=== PATIENT | female | born 1990 | race Caucasian/White ===

== ENCOUNTER → 2017-11-03 | Outpatient (CLI) | payer MEDICAID ==
[~2017-11-03] MED LIST: ADVA115A INH; ALBU6.7H INH; FLUO-1 PO; LEVO25TA4 PO; LISI-519 PO
--- NOTE | 2017-11-04 13:53 | EKG ---
Date Performed: 11/03/2017 Time Performed: 10:23:20 PTAGE: 27 years EKG: Sinus rhythm . Normal ECG NO PREVIOUS TRACING DOCTOR: Manuel Mclaughlin Interpretating Date/Time 11/04/2017 13:51:40
== END ==
LOC: HCAV 10:09
PROVIDERS: ATTEND Psychiatry & Neurology Child & Adolescent Psychiatry
DX: F31.31 Bipolar disorder, current episode depressed, mild (principal)
CPT/HCPCS: 93005

== ENCOUNTER 2017-11-25 09:57 | Emergency (ER) | payer MEDICAID ==
[~2017-11-25] VITALS: Ht 165.1 cm; Wt 105.0 kg
[2017-11-25 10:00] VITALS: BP 134/73; PULSE 91; RESP 15; TEMP 98.2; O2SAT 99
[2017-11-25] MEDS ORDERED: traMADol HCL 50 MG TAB PO ONE (10:15)
--- NOTE | 2017-11-25 10:45 | RADRPT ---
EXAM DATE/TIME: 11/25/2017 10:22 [facility] COMPARISON: No previous studies available for comparison. INDICATIONS : Patient complain of swelling, pain, and a rash to left ankle. Patient states the pain feels like gout . MEDICAL HISTORY : Gout. SURGICAL HISTORY : None. ENCOUNTER: Initial ACUITY: 4 - 6 days PAIN SCORE: 7/10 LOCATION: Left Ankle FINDINGS: AP, lateral and oblique views of the left ankle were obtained and demonstrate no evidence of fracture or underlying bony abnormality. Ankle mortise is intact. There is diffuse soft tissue prominence wit h no abnormal calcifications. There is no destructive change or periosteal new bone formation. CONCLUSION: Nonspecific soft tissue swelling. Mickey Ivan MD on November 25, 2017 at 10:42 Board Certified Radiologist. This report was verified electronically.
[2017-11-25 11:08] LABS: BASOPHIL % 0.3 % (0.0-2.0); EOSINOPHIL # 0.7 TH/MM3 (0-0.4); EOSINOPHIL % 6.4 % (0.0-4.0); HEMATOCRIT 40.4 % (35.0-46.0); HEMOGLOBIN 13.3 GM/DL (11.6-15.3); LYMPH % 28.3 % (9.0-44.0); LYMPHOCYTE # 3.3 TH/MM3 (1.0-4.8); MEAN CELL VOLUME 84.4 FL (80.0-100.0); MEAN CORPUSCULAR HEMOGLOBIN 27.8 PG (27.0-34.0); MEAN CORPUSCULAR HGB CONC 32.9 % (32.0-36.0); MEAN PLATELET VOLUME 9.1 FL (7.0-11.0); MONO % 4.7 % (0.0-8.0); MONOCYTE # 0.5 TH/MM3 (0-0.9); NEUT % 60.3 % (16.0-70.0); PLATELET COUNT 279 TH/MM3 (150-450); RED BLOOD COUNT 4.78 MIL/MM3 (4.00-5.30); WHITE BLOOD COUNT 11.6 TH/MM3 (4.0-11.0)
[2017-11-25 11:33] LABS: ALBUMIN 3.8 GM/DL (3.4-5.0); AST (GOT) 16 U/L (15-37); BICARBONATE 23.9 MEQ/L (21.0-32.0); BLOOD UREA NITROGEN 17 MG/DL (7-18); CALCIUM 9.2 MG/DL (8.5-10.1); CHLORIDE 111 MEQ/L (98-107); CREATININE 1.31 MG/DL (0.50-1.00); GLOMERULAR FILTRATION RATE 49 ML/MIN (>89); GLUCOSE,RANDOM 85 MG/DL (74-106); SODIUM (NA) 141 MEQ/L (136-145)
[2017-11-25 11:34] LABS: ALT (GPT) 22 U/L (10-53)
[2017-11-25 11:36] LABS: ALKALINE PHOSPHATASE 122 U/L (45-117); TOTAL BILIRUBIN ADULT 0.2 MG/DL (0.2-1.0); TOTAL PROTEIN 7.2 GM/DL (6.4-8.2)
--- NOTE | 2017-11-25 11:37 | PD ---
HPI Chief Complaint: Pain: Acute or Chronic Time Seen by Provider: 10:03 Travel History International Travel<30 days: No Contact w/Intl Traveler<30days: No Traveled to known affect area: No History of Present Illness HPI Patient is a 27 year old female who comes in complaining of left foot pain. She says it has been going on for the past 3-4 days. She has not taken anything for the pain. Walking on her foot makes it worse. She has noticed a rash to the area. She denies any wounds to the area or breaks in her skin. She says it is burning and itching. She says she had something similar a while ago, but it just went away on its own. She denies fever or chills. She denies any injury. Severity is mild to moderate. PFSH Past Medical History Arthritis: Yes Depression: Yes High Cholesterol: Yes Diminished Hearing: No Gout: Yes Hypertension: Yes Immunizations Current: No Thyroid Disease: Yes ?: Not LMP: 11/2017 : 0 Tubal Ligation: Yes Past Surgical History Gynecologic Surgery: Yes Social History Alcohol Use: No Tobacco Use: Yes Substance Use: Yes (CANNABIS) Allergies-Medications (Allergen,Severity, Reaction): Coded Allergies: No Known Allergies (Verified Allergy, Unknown, 11/25/17) Reported Meds & Prescriptions Reported Meds & Active Scripts Active Advair Hfa 12 GM Inh (Fluticasone-Salmeterol 12 GM Inh) 115-21 Mcg/Act Aer 2 Puff INH BID Proventil Hfa 6.7 GM Inh (Albuterol Sulfate) 90 Mcg/Act Aer 2 Puff INH Q4-6H PRN Prozac (Fluoxetine HCl) 10 Mg Cap 10 Mg PO DAILY Start with 10mg daily. If that is not effective after 1 week, please increase your dose to 20mg daily. Lisinopril 5 Mg Tab 5 Mg PO DAILY Levothyroxine (Levothyroxine Sodium) 25 Mcg Tab 25 Mcg PO DAILY Review of Systems Except as stated in HPI: all other systems reviewed are Neg General / Constitutional: No: Fever, Chills HENT: No: Headaches, Lightheadedness Respiratory: No: Shortness of Breath Gastrointestinal: No: Nausea, Vomiting Musculoskeletal: Positive: Pain, No: Edema Skin: Positive Rash, Positive Itching Neurologic: No: Weakness, Dizziness Physical Exam Narrative GENERAL: Awake and alert, in no acute distress. SKIN: Focused skin assessment warm/dry. Trupti rash to the medial side of the left ankle, no warmth or wounds. HEAD: Atraumatic. Normocephalic. EYES: Pupils equal and round. No scleral icterus. ENT: Mucous membranes pink and moist. NECK: Trachea midline. No JVD. CARDIOVASCULAR: Regular rate and rhythm. No murmur appreciated. RESPIRATORY: No accessory muscle use. Clear to auscultation. Breath sounds equal bilaterally. GASTROINTESTINAL: Abdomen soft, non-tender, nondistended. Hepatic and splenic margins not palpable. MUSCULOSKELETAL: No obvious deformities. No clubbing. No cyanosis. No edema. Tender to palpation of the right medial malleolus. Pedal pulse intact. NEUROLOGICAL: Awake and alert. No obvious cranial nerve deficits. Motor grossly within normal limits. Normal speech. PSYCHIATRIC: Appropriate mood and affect; insight and judgment normal. Data Data Last Documented VS Vital Signs Date Time Temp Pulse Resp B/P (MAP) Pulse Ox O2 Delivery O2 Flow Rate FiO2 11/25/17 10:00 98.2 91 15 134/73 (93) 99 Orders Orders Iv Access Insert/Monitor (11/25/17 10:13) Complete Blood Count With Diff (11/25/17 10:13) Comprehensive Metabolic Panel (11/25/17 10:13) Ankle, Complete ([id number]) (11/25/17 ) Tramadol (Ultram) (11/25/17 10:15) Us Leg Venous Doppler (11/25/17 ) Labs Laboratory Tests Test 11/25/17 11:00 White Blood Count 11.6 TH/MM3 Red Blood Count 4.78 MIL/MM3 Hemoglobin 13.3 GM/DL Hematocrit 40.4 % Mean Corpuscular Volume 84.4 FL Mean Corpuscular Hemoglobin 27.8 PG Mean Corpuscular Hemoglobin Concent 32.9 % Red Cell Distribution Width 14.0 % Platelet Count 279 TH/MM3 Mean Platelet Volume 9.1 FL Neutrophils (%) (Auto) 60.3 % Lymphocytes (%) (Auto) 28.3 % Monocytes (%) (Auto) 4.7 % Eosinophils (%) (Auto) 6.4 % Basophils (%) (Auto) 0.3 % Neutrophils # (Auto) 7.0 TH/MM3 Lymphocytes # (Auto) 3.3 TH/MM3 Monocytes # (Auto) 0.5 TH/MM3 Eosinophils # (Auto) 0.7 TH/MM3 Basophils # (Auto) 0.0 TH/MM3 CBC Comment DIFF FINAL Differential Comment Blood Urea Nitrogen 17 MG/DL Creatinine 1.31 MG/DL Random Glucose 85 MG/DL Total Protein 7.2 GM/DL Albumin 3.8 GM/DL Calcium Level 9.2 MG/DL Alkaline Phosphatase 122 U/L Aspartate Amino Transf (AST/SGOT) 16 U/L Alanine Aminotransferase (ALT/SGPT) 22 U/L Total Bilirubin 0.2 MG/DL Sodium Level 141 MEQ/L Potassium Level 3.7 MEQ/L Chloride Level 111 MEQ/L Carbon Dioxide Level 23.9 MEQ/L Anion Gap 6 MEQ/L Estimat Glomerular Filtration Rate 49 ML/MIN [facility] Medical Decision Making Medical Screen Exam Complete: Yes Emergency Medical Condition: Yes Medical Record Reviewed: Yes Differential Diagnosis cellulitis vs fungal infection vs allergic rash Narrative Course Patient is a 27 year old female who comes in complaining of a painful rash to her left ankle. Exam shows a trupti, erythematous rash to the left medial malleolus. IV established, labs sent. Labs show no acute abnormalities other than WBC count of 11.6 (patient has history of chronic kidney disease). Given Tramadol for pain. XR of the ankle shows no flor abnormalities. US of the leg shows no evidence of DVT. Last 24 hours Impressions Ankle X-Ray 11/25/17 0000 Signed Impressions: Service Date/Time: Saturday, November 25, 2017 10:22 - CONCLUSION: Nonspecific soft tissue swelling. Mickey Ivan MD Will be discharged with prescription for Keflex and pain medicine. Advised to try applying cortisone cream. Advised to follow up with a primary doctor. Return to the ED as needed for any worsening symptoms. Diagnosis Primary Impression: Ankle pain Qualified Codes: M25.572 - Pain in left ankle and joints of left foot Additional Impression: Rash Referrals: [facility] call for appointment Patient Instructions: Acute Rash (ED), Arthralgia (ED), General Instructions Additional Instructions: Follow up with a primary care doctor. Take all of the antibiotic. Apply the steroid cream as directed. Return to the ED as needed for any worsening symptoms. Scripts Tramadol (Tramadol) 50 Mg Tab 50 MG PO Q6H Y for PAIN, #10 TAB 0 Refills Prov: Gershen,Salima B MD 11/25/17 Hydrocortisone Topical (Hydrocortisone Topical) 1% Cream 1 APPLIC TOPICAL BID for Rash/Inflammation for 7 Days, GM 0 Refills Prov: Salima Murillo MD 11/25/17 Cephalexin (Keflex) 500 Mg Cap 500 MG PO Q6H for Infection for 7 Days, #28 CAP 0 Refills Prov: Salima Murillo MD 11/25/17 Disposition: 01 DISCHARGE HOME Condition: Stable Salima Murillo MD Nov 25, 2017 11:37
--- NOTE | 2017-11-25 12:49 | RADRPT ---
EXAM DATE/TIME: 11/25/2017 11:16 [facility] COMPARISON: No previous studies available for comparison. INDICATIONS : Left leg swelling. MEDICAL HISTORY : Hypercholesterolemia. Hypertension. Thyroid disease. Arthritis. GOUT. PTSD. Depression. Substance use. SURGICAL HISTORY : Tubal ligation. ENCOUNTER: Initial ACUITY: 2 day PAIN SCORE: 4/10 LOCATION: Left leg. TECHNIQUE: Venous ultrasound of the leg was performed from the inguinal ligament to the proximal calf. Real-pancho e, color Doppler and spectral tracing, compression and augmentation techniques were used. FINDINGS: There is normal compressibility of the deep venous system from the inguinal region to the proximal ca lf. No echogenic clot is seen in the lumen of the common femoral, femoral, popliteal, and posterior tibial veins. There is a normal response of the venous system to proximal and distal augmentation an d respiration. CONCLUSION: Negative exam with no evidence of deep venous thrombosis. Mickey Ivan MD on November 25, 2017 at 12:46 Board Certified Radiologist. This report was verified electronically.
[2017-11-25] MEDS ORDERED: CEPH-460 PO (13:03)
[2017-11-25] MEDS ORDERED: TRAM50TA PO (13:03)
[2017-11-25] MEDS ORDERED: HYDR1CRE TOPICAL (13:03)
== END 2017-11-25 13:15 | disposition home or self-care (01) ==
LOC: NEPD 09:57
DX: M25.572 Pain in left ankle and joints of left foot (principal); R21 Rash and other nonspecific skin eruption; I10 Essential (primary) hypertension; E78.00 Pure hypercholesterolemia, unspecified; M10.9 Gout, unspecified; F32.9 Major depressive disorder, single episode, unspecified; Z72.0 Tobacco use; Z79.899 Other long term (current) drug therapy
CPT/HCPCS: 73610; 80053; 85025; 93971; 99284

== ENCOUNTER 2017-11-30 07:55 | Inpatient (IN) | payer MEDICAID, OTHER ==
[~2017-11-30] VITALS: Ht 165.1 cm; Wt 107.1 kg
[~2017-11-30 07:55] MED LIST changes: +CEPH-460 PO; +HYDR1CRE TOPICAL; +TRAM50TA PO
[2017-11-30 07:57] VITALS: BP 153/99; PULSE 81; RESP 18; TEMP 98.5; O2SAT 98
[2017-11-30] MEDS ORDERED: HTN (08:02)
--- NOTE | 2017-11-30 08:23 | PD ---
HPI Chief Complaint: Psychiatric Symptoms Time Seen by Provider: 08:23 Travel History International Travel<30 days: No Contact w/Intl Traveler<30days: No Traveled to known affect area: No History of Present Illness HPI 27-year-old female presents emergency department with suicidal ideation. Patient states her plan would be to take all of her meds at home at once. She states she has never felt this way before. She has no previous history of suicidal ideation or attempt in the past. She denies any acute medical issues. She denies . She denies alcohol or drug abuse. She has no known drug allergies. PFSH Past Medical History Arthritis: Yes Depression: Yes High Cholesterol: Yes Diminished Hearing: No Gout: Yes Hypertension: Yes Immunizations Current: No Thyroid Disease: Yes ?: Not : 0 Tubal Ligation: Yes Past Surgical History Gynecologic Surgery: Yes Social History Alcohol Use: No Tobacco Use: Yes Substance Use: Yes (CANNABIS) Allergies-Medications (Allergen,Severity, Reaction): Coded Allergies: No Known Allergies (Verified Allergy, Unknown, 11/25/17) Reported Meds & Prescriptions Reported Meds & Active Scripts Active Advair Hfa 12 GM Inh (Fluticasone-Salmeterol 12 GM Inh) 115-21 Mcg/Act Aer 2 Puff INH BID Proventil Hfa 6.7 GM Inh (Albuterol Sulfate) 90 Mcg/Act Aer 2 Puff INH Q4-6H PRN Prozac (Fluoxetine HCl) 10 Mg Cap 10 Mg PO DAILY Start with 10mg daily. If that is not effective after 1 week, please increase your dose to 20mg daily. Levothyroxine (Levothyroxine Sodium) 25 Mcg Tab 25 Mcg PO DAILY Reported [Htn] Review of Systems Except as stated in HPI: all other systems reviewed are Neg General / Constitutional: No: Fever Eyes: No: Visual changes HENT: No: Headaches Cardiovascular: No: Chest Pain or Discomfort Respiratory: No: Shortness of Breath Gastrointestinal: No: Abdominal Pain Genitourinary: No: Dysuria Musculoskeletal: No: Pain Skin: No Rash Neurologic: No: Weakness Psychiatric: No: Depression Endocrine: No: Polydipsia Hematologic/Lymphatic: No: Easy Bruising Physical Exam Narrative GENERAL: Moderately obese female who appears upset but otherwise medically stable. SKIN: Warm and dry. Normal color. Normal turgor. No rash. HEAD: Atraumatic. Normocephalic. EYES: Pupils equal and round. No scleral icterus. No injection or drainage. ENT: No nasal bleeding or discharge. Mucous membranes pink and moist. Pharynx is clear. Airways patent NECK: Trachea midline. Supple and nontender per CARDIOVASCULAR: Regular rate and rhythm. RESPIRATORY: No accessory muscle use. Clear to auscultation. Breath sounds equal bilaterally. MUSCULOSKELETAL: Extremities without clubbing, cyanosis, or edema. No obvious deformities. NEUROLOGICAL: Awake and alert. No obvious cranial nerve deficits. Motor grossly within normal limits. Five out of 5 muscle strength in the arms and legs. Normal speech. PSYCHIATRIC: Appropriate mood and affect; insight and judgment normal. Data Data Last Documented VS Vital Signs Date Time Temp Pulse Resp B/P (MAP) Pulse Ox O2 Delivery O2 Flow Rate FiO2 11/30/17 07:57 98.5 81 18 153/99 (117) 98 Orders Orders Complete Blood Count With Diff (11/30/17 08:04) Comprehensive Metabolic Panel (11/30/17 08:04) Urinalysis - C+S If Indicated (11/30/17 08:04) Ed Urine Pregnancytest Poc (11/30/17 08:04) Psych Screen (11/30/17 08:04) Drug Screen, Random Urine (11/30/17 08:04) MDM Medical Decision Making Medical Screen Exam Complete: Yes Emergency Medical Condition: Yes Differential Diagnosis Depression. Suicidal ideation. Need for psychiatric evaluation. Narrative Course Patient is medically stable at time of exam. Psychiatric labs ordered per protocol including urinary . Patient is medically cleared for psychiatric evaluation. I discussed with the patient that she is currently voluntary, however if she was to choose to leave, I would Reeves act her at that time. Condition: Stable Norberto Avalos Nov 30, 2017 08:23
[2017-11-30 08:55] VITALS: BP 137/93; PULSE 75; RESP 16; TEMP 99.1; O2SAT 95
[2017-11-30 10:05] LABS: AUTOMATED NEUTROPHIL # 6.2 TH/MM3 (1.8-7.7); BASOPHIL % 0.4 % (0.0-2.0); EOSINOPHIL # 0.8 TH/MM3 (0-0.4); EOSINOPHIL % 8.2 % (0.0-4.0); HEMATOCRIT 47.3 % (35.0-46.0); LYMPHOCYTE # 2.6 TH/MM3 (1.0-4.8); MEAN CELL VOLUME 88.1 FL (80.0-100.0); MEAN CORPUSCULAR HGB CONC 31.7 % (32.0-36.0); MEAN PLATELET VOLUME 8.7 FL (7.0-11.0); MONO % 3.2 % (0.0-8.0); MONOCYTE # 0.3 TH/MM3 (0-0.9); NEUT % 62.2 % (16.0-70.0); PLATELET COUNT 259 TH/MM3 (150-450); RED BLOOD COUNT 5.37 MIL/MM3 (4.00-5.30); RED CELL DISTRIBUTION WIDTH 14.5 % (11.6-17.2)
[2017-11-30 10:08] LABS: BILIRUBIN, URINE NEG (NEG); BLOOD, URINE NEG (NEG); GLUCOSE,URINE NEG (NEG); KETONE, URINE NEG (NEG); MUCUS URINE FEW /lpf (OCC); NITRITE,URINE NEG (NEG); PH, URINE 5.5 (5.0-8.5); SQUAMOUS EPITHELIAL CELL URINE 1 /hpf (0-5); TRANSITIONAL EPI CELLS, URINE <1 /hpf; URINE COLOR YELLOW (YELLW/STRAW); URINE LEUKOCYTE ESTERASE NEG (NEG)
[2017-11-30 10:20] LABS: ALBUMIN 4.1 GM/DL (3.4-5.0); AST (GOT) 23 U/L (15-37); BICARBONATE 22.4 MEQ/L (21.0-32.0); BLOOD UREA NITROGEN 22 MG/DL (7-18); CALCIUM 9.3 MG/DL (8.5-10.1); CHLORIDE 104 MEQ/L (98-107); GLOMERULAR FILTRATION RATE 46 ML/MIN (>89); GLUCOSE,RANDOM 74 MG/DL (74-106); SODIUM (NA) 137 MEQ/L (136-145)
[2017-11-30 10:22] LABS: ALT (GPT) 29 U/L (10-53)
[2017-11-30 10:23] LABS: ALKALINE PHOSPHATASE 131 U/L (45-117); TOTAL BILIRUBIN ADULT 0.3 MG/DL (0.2-1.0); TOTAL PROTEIN 7.9 GM/DL (6.4-8.2)
[2017-11-30 14:08] VITALS: BP 182/102; PULSE 71; RESP 18; TEMP 97.2; O2SAT 100
[2017-11-30 18:32] VITALS: BP 149/83; PULSE 65; RESP 19; TEMP 97.8; O2SAT 92
--- NOTE | 2017-11-30 20:25 | PD ---
History of Present Illness Chief Complaint: Psychiatric Symptoms Time Seen by Provider: 20:10 Travel History International Travel<30 Days: No Contact w/Intl Traveler<30days: No Known affected area: No Legal Status Legal Status: Voluntary History of Present Illness: This is a 27-year-old, single, female who presents voluntarily to this facility for reports of suicidal ideation and depression. She has been seen at this facility previously but never for mental health issues. Reviewed electronic medical record, labs, discuss case with staff. Patient was evaluated in her room and J pod with Sudha MEHTA present. Patient is awake, alert , and oriented 4. Her speech is clear, logical, and organized. Her mood and affect are sad and she becomes tearful during the interview. She states that she still has intermittent suicidal ideation and reports that she would overdose on medications. She denies being homicidal or having auditory or visual hallucinations. She does not appear to be internally stimulated and there is no indication of thought blocking. I can elicit no delusional material. Patient states that she has been feeling depressed on and off and with further questioning describes what could be interpreted as manic episodes in between. She went to her primary care physician a couple of months ago and was placed on Prozac. She states that she went to [facility] and they attempted to start her on Topamax in spite of her telling them that she could not take it due to renal issues. She also reports going to "talk therapy " and states that her last appointment with them was last . She reports that she has a good relationship with her boyfriend and is the mother of a 2-year-old and a 5-year-old. She does state that her grandfather last May and since then there have been some financial burdens which have failed to her. She is employed. She related that she felt as though she was a horrible mother because she spends too much time working and not a tough time with her children. This was at 1 of the points which she became tearful. [facility] Past Medical History Arthritis: Yes Depression: Yes High Cholesterol: Yes Diminished Hearing: No Gout: Yes Hypertension: Yes Immunizations Current: No Thyroid Disease: Yes ?: Not : 0 Tubal Ligation: Yes Past Surgical History Gynecologic Surgery: Yes Psychiatric History Psychiatric History No previous inpatient admissions. Patient reports that she has been taking Prozac past month or so which was prescribed to her by her primary care physician. She recently went to a psychiatrist at [facility] but states that she had a bad experience as she was concerned about the medication and her renal function. She reports that she felt that the provider "did not care". She does report cutting her leg in 2015 and which she describes as an attempted suicide. Hx Psychiatric Treatment: PT RECEIVES PROZAC FROM PRIMARY PHYSICIAN FOR PTSD AND BIPOLAR D/O History of Inpatient Treatment: No Guns or firearms in home: No Social History She lives with her boyfriend and 2 young children. Hx Alcohol Use: No Hx Tobacco Use: Yes Hx Substance Use: No Hx of Substance Use Treatment: No Family Psychiatric History Patient reports that she lives with her boyfriend and 2 children. She reports that she does have a good relationship with her mother. Allergies-Medications (Allergen,Severity, Reaction): Coded Allergies: No Known Allergies (Verified Allergy, Unknown, 11/30/17) Reported Meds & Prescriptions Reported Meds & Active Scripts Active Advair Hfa 12 GM Inh (Fluticasone-Salmeterol 12 GM Inh) 115-21 Mcg/Act Aer 2 Puff INH BID Proventil Hfa 6.7 GM Inh (Albuterol Sulfate) 90 Mcg/Act Aer 2 Puff INH Q4-6H PRN Prozac (Fluoxetine HCl) 10 Mg Cap 10 Mg PO DAILY Start with 10mg daily. If that is not effective after 1 week, please increase your dose to 20mg daily. Levothyroxine (Levothyroxine Sodium) 25 Mcg Tab 25 Mcg PO DAILY Reported [Htn] Mental Status Examination Appearance: Appropriate Consciousness: Alert Orientation: x4 Motor Activity: Other (Lying in the bed) Speech: Unremarkable Language: Adequate Fund of Knowledge: Adequate Attention and Concentration: Adequate Memory: Unremarkable Mood: Sad Affect: Sad (Tearful) Thought Process & Associations: Intact Thought Content: Appropriate Hallucination Type: None Delusion Type: None Suicidal Ideation: Yes Suicidal Plan: Yes (Overdose) Suicidal Intention: No Homicidal Ideation: No Homicidal Plan: No Homicidal Intention: No Insight: Poor Judgment: Impulsive MDM Medical Decision Making Medical Record Reviewed: Yes Assessment/Plan This is a 27-year-old, single, female reports voluntarily to the emergency department with reported suicidal ideation. Upon examination this evening patient is sad, tearful, and continues to endorse suicidal ideation by overdose. Her speech is clear, organized, and logical. I am unable to elicit any delusional material. She does not appear to be internally stimulated nor does there appear to be any thought blocking. In talking with the patient it sounded as though she may have also had some manic type episodes recently. Her current medication is Prozac and she reports that a [facility] mental health provider tried to put her on Topamax but states that due to her renal function she would not take it. Given her continued endorsement of suicidal ideation, her depression, and her attempts at unsuccessful he managing this situation outpatient I am admitting her to the 2600 unit for further evaluation and treatment as deemed necessary. Orders Orders Complete Blood Count With Diff (11/30/17 08:04) Comprehensive Metabolic Panel (11/30/17 08:04) Urinalysis - C+S If Indicated (11/30/17 08:04) Ed Urine Pregnancytest Poc (11/30/17 08:04) Psych Screen (11/30/17 08:04) Drug Screen, Random Urine (11/30/17 08:04) Diet Regular Basic (11/30/17 Dinner) Results Vital Signs Date Time Temp Pulse Resp B/P (MAP) Pulse Ox O2 Delivery O2 Flow Rate FiO2 11/30/17 18:32 97.8 65 19 149/83 (105) 92 Room Air 11/30/17 14:08 97.2 71 18 182/102 (128) 100 Room Air 11/30/17 13:29 11/30/17 08:55 99.1 75 16 137/93 (108) 95 Room Air 11/30/17 07:57 98.5 81 18 153/99 (117) 98 Laboratory Tests Test 11/30/17 08:27 11/30/17 08:55 Urine Color YELLOW Urine Turbidity CLEAR Urine pH 5.5 Urine Specific [place] 1.014 Urine Protein 30 Urine Glucose (UA) NEG Urine Ketones NEG Urine Occult Blood NEG Urine Nitrite NEG Urine Bilirubin NEG Urine Urobilinogen LESS THAN 2.0 Urine Leukocyte Esterase NEG Urine RBC LESS THAN 1 Urine WBC LESS THAN 1 Urine Squamous Epithelial Cells 1 Urine Transitional Epithelial Cells <1 Urine Mucus FEW Microscopic Urinalysis Comment CULT NOT INDICATED Urine Opiates Screen NEG Urine Barbiturates Screen NEG Urine Amphetamines Screen NEG Urine Benzodiazepines Screen NEG Urine Cocaine Screen NEG Urine Cannabinoids Screen NEG White Blood Count 10.0 Red Blood Count 5.37 Hemoglobin 15.0 Hematocrit 47.3 Mean Corpuscular Volume 88.1 Mean Corpuscular Hemoglobin 28.0 Mean Corpuscular Hemoglobin Concent 31.7 Red Cell Distribution Width 14.5 Platelet Count 259 Mean Platelet Volume 8.7 Neutrophils (%) (Auto) 62.2 Lymphocytes (%) (Auto) 26.0 Monocytes (%) (Auto) 3.2 Eosinophils (%) (Auto) 8.2 Basophils (%) (Auto) 0.4 Neutrophils # (Auto) 6.2 Lymphocytes # (Auto) 2.6 Monocytes # (Auto) 0.3 Eosinophils # (Auto) 0.8 Basophils # (Auto) 0.0 CBC Comment DIFF FINAL Differential Comment Blood Urea Nitrogen 22 Creatinine 1.40 Random Glucose 74 Total Protein 7.9 Albumin 4.1 Calcium Level 9.3 Alkaline Phosphatase 131 Aspartate Amino Transf (AST/SGOT) 23 Alanine Aminotransferase (ALT/SGPT) 29 Total Bilirubin 0.3 Sodium Level 137 Potassium Level 3.6 Chloride Level 104 Carbon Dioxide Level 22.4 Anion Gap 11 Estimat Glomerular Filtration Rate 46 Diagnosis Primary Impression: MDD (major depressive disorder), recurrent episode, moderate Admitting Information Admitting Physician Requests: Admit Condition: Stable Consuelo Valverde Nov 30, 2017 20:25
[2017-11-30] MEDS: NICOTINE 21 MG/24 HR PATCH T-DERMAL SCH (20:30)
[2017-11-30] MEDS ORDERED: ALUMINUM/MAGNESIUM/SIMETH 30 ML CUP PO PRN (20:30)
[2017-11-30] MEDS ORDERED: MAGNESIUM HYDROXIDE SUSP 30 ML CUP PO PRN (20:30)
[2017-11-30] MEDS ORDERED: ACETAMINOPHEN 325 MG TAB PO PRN (20:30)
[2017-11-30 21:13] VITALS: BP 137/63; PULSE 69; RESP 18
[2017-11-30 21:15] VITALS: BP 137/74; PULSE 84; RESP 16; TEMP 98.2; O2SAT 94
[2017-12-01 05:27] VITALS: BP 156/90; PULSE 78; RESP 16; TEMP 97.9; O2SAT 96
[2017-12-01 08:15] LABS: BLOOD UREA NITROGEN 21 MG/DL (7-18); CALCIUM 9.3 MG/DL (8.5-10.1); CHLORIDE 107 MEQ/L (98-107); CREATININE 1.19 MG/DL (0.50-1.00); GLOMERULAR FILTRATION RATE 55 ML/MIN (>89); GLUCOSE,RANDOM 82 MG/DL (74-106); SODIUM (NA) 138 MEQ/L (136-145)
[2017-12-01 08:17] LABS: CHOLESTEROL 132 MG/DL (120-200); TRIGLYCERIDES 82 MG/DL (42-150)
[2017-12-01 08:18] LABS: CHOLESTEROL/ HDL RATIO 3.15 RATIO; HDL CHOLESTEROL 41.8 MG/DL (40.0-60.0); LDL CHOLESTEROL 74 MG/DL (0-99)
[2017-12-01] MEDS: NICOTINE 21 MG/24 HR PATCH T-DERMAL SCH (09:00)
[2017-12-01] MEDS: REMOVE OLD PATCH T-DERMAL SCH (09:00)
[2017-12-01] MEDS ORDERED: PNEUMOCOCCAL POLYVALENT INJ 25 MCG/0.5 ML SYR IM ONE (09:00)
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
[2017-12-01] MEDS ORDERED: diphenhydrAMINE HCL 50 MG CAP PO PRN (14:00)
[2017-12-01] MEDS ORDERED: ALBUTEROL SULFATE 90 MCG/ACT HFA 8 GM INHALER INH PRN (14:00)
[2017-12-01] MEDS ORDERED: BENZTROPINE MESYLATE 1 MG TAB PO PRN (15:00)
[2017-12-01] MEDS ORDERED: BENZTROPINE MESYLATE 2 MG/2 ML VIAL IM PRN (15:00)
[2017-12-01] MEDS: FLUoxetine HCL 20 MG CAP PO SCH (15:23)
--- NOTE | 2017-12-01 15:52 | PD.TTN ---
Patient Problems 1. Discharge planning 2. Medication compliance 3. Knowledge deficit 4. Lack of coping skills Progress Toward Goals Provider Present: Dr. Adan Sears Provider Input: 12/01/17 - This is a new patient and Dr. Sears will evaluate her today. Psychiatric Counselors Present: BALJINDER Martínez Psych Therapist Input: 12/01/17 - New patient and counselor will assess her mental status today. Group Spec/RT/OT/BARRON Present: BEATRICE Loco Group Spec/RT/OT/BARRON Input: 12/01/17 - New patient Discharge Plan [facility] 12/01/17 - Patient is currently receiveing psychiatric medications for her PCP. Counselor will arrange for a psychiatric follow-up appointment with [facility] prior to patient's discharge. Documentation Scribe: BALJINDER Martínez Date Resolved: Dec 01, 2017 Haley Choi Dec 01, 2017 15:52
[2017-12-01] MEDS ORDERED: AMLO5TAB2 PO (16:05)
[2017-12-01] MEDS ORDERED: ATOR20TA15 PO (16:05)
[2017-12-01] MEDS ORDERED: LEVO25TA4 PO (16:05)
[2017-12-01] MEDS ORDERED: PROZ40CA PO (16:05)
[2017-12-01] MEDS ORDERED: MONT10TA4 PO (16:05)
[2017-12-01 16:18] LABS: HEMOGLOBIN A1C 5.2 % (4.3-6.0)
[2017-12-01] MEDS ORDERED: NICOTINE 21 MG/24 HR PATCH T-DERMAL PRN (18:00)
[2017-12-01 18:31] VITALS: BP 155/86; PULSE 76; RESP 17; TEMP 97.8; O2SAT 98
[2017-12-01] MEDS: ATORVASTATIN 20 MG TAB PO SCH (21:21)
[2017-12-01] MEDS: QUEtiapine FUMARATE 25 MG TAB PO SCH (21:21)
[2017-12-01] MEDS: MONTELUKAST SODIUM 10 MG TAB PO SCH (21:22)
[2017-12-01] MEDS: BUDESONIDE-FORMOTEROL 160/4.5 MCG INHALER INH SCH (21:51)
[2017-12-02] MEDS: LEVOTHYROXINE SODIUM 25 MCG TAB PO SCH (05:58)
[2017-12-02 06:14] VITALS: BP 94/50; PULSE 61; RESP 16; TEMP 98.7; O2SAT 94
[2017-12-02 06:31] VITALS: BP 120/78; PULSE 80
[2017-12-02] MEDS: FLUoxetine HCL 20 MG CAP PO SCH (08:53)
[2017-12-02] MEDS: REMOVE OLD PATCH T-DERMAL SCH (08:53)
[2017-12-02] MEDS: BUDESONIDE-FORMOTEROL 160/4.5 MCG INHALER INH SCH ×2 (08:53→20:59)
[2017-12-02] MEDS: amLODIPine BESYLATE 5 MG TAB PO SCH ×2 (08:53→12:28)
--- NOTE | 2017-12-02 12:09 | HHI.PYPN ---
Subjective Chief Complaint: Depression Remarks Reviewed electronic medical record discussed case with staff. Follow-up was conducted in patient's room with nurse present. Patient was found sleeping in bed. She woke to verbal stimuli. She is alert and oriented 4. Her mood still remains somewhat depressed although today she is not tearful. She denies having suicidal ideation today. States that she has been sleeping well and that she has had a good appetite. Mental Status Examination Appearance: Appropriate Consciousness: Alert Orientation: x4 Motor Activity: Other (No motor abnormalities noted) Speech: Unremarkable Language: Adequate Fund of Knowledge: Adequate Attention and Concentration: Adequate Memory: Unremarkable (Grossly intact on clinical exam) Mood: Other (Dysphoric) Affect: Other (Restricted, tearful) Thought Process & Associations: Intact, Logical, Linear Thought Content: Appropriate Hallucination Type: None Delusion Type: None Suicidal Ideation: No Suicidal Plan: No Suicidal Intention: No Homicidal Ideation: No Homicidal Plan: No Homicidal Intention: No Insight: Fair Judgment: Impulsive Results Vitals/IOs Vital Signs Date Time Temp Pulse Resp B/P (MAP) Pulse Ox O2 Delivery O2 Flow Rate FiO2 12/02/17 06:31 80 120/78 (92) 12/02/17 06:14 98.7 16 94 11/30/17 21:13 Room Air Intake and Output 12/02/17 12/02/17 12/03/17 08:00 16:00 00:00 Intake Total 480 ml Balance 480 ml Assessment & Plan Problem List: (1) Adjustment disorder with depressed mood ICD Codes: F43.21 - Adjustment disorder with depressed mood Assessment & Plan Estimated LOS: Continue with treatment plan as ordered. Patient may still need some medication titration. Days Justification for Cont. Inpt. Review this patient to a lower level of care would likely result in a decompensation. Request HC Surrog/Guard Advoc?: No Consuelo Valverde Dec 02, 2017 12:09
[2017-12-02 12:35] VITALS: BP 170/92; PULSE 79; RESP 16; O2SAT 99
[2017-12-02 18:09] VITALS: BP 116/68; PULSE 68; RESP 17; TEMP 97.8; O2SAT 99
[2017-12-02] MEDS: QUEtiapine FUMARATE 25 MG TAB PO SCH (20:56)
[2017-12-02] MEDS: MONTELUKAST SODIUM 10 MG TAB PO SCH (20:56)
[2017-12-02] MEDS: ATORVASTATIN 20 MG TAB PO SCH (20:57)
[2017-12-03 05:44] VITALS: BP 96/61; PULSE 69; RESP 16; TEMP 97.9; O2SAT 99
[2017-12-03] MEDS: LEVOTHYROXINE SODIUM 25 MCG TAB PO SCH (05:59)
[2017-12-03 06:06] VITALS: BP 142/78; PULSE 68
[2017-12-03] MEDS: BUDESONIDE-FORMOTEROL 160/4.5 MCG INHALER INH SCH ×2 (08:35→21:00)
[2017-12-03] MEDS: FLUoxetine HCL 20 MG CAP PO SCH (08:35)
[2017-12-03] MEDS: amLODIPine BESYLATE 5 MG TAB PO SCH (08:35)
[2017-12-03] MEDS: REMOVE OLD PATCH T-DERMAL SCH (08:36)
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
[2017-12-03] MEDS: hydrOXYzine HCL 25 MG TAB PO PRN (17:20)
[2017-12-03 18:13] VITALS: BP 120/69; PULSE 72; RESP 16; TEMP 97.9; O2SAT 100
[2017-12-03] MEDS: MONTELUKAST SODIUM 10 MG TAB PO SCH (21:00)
[2017-12-03] MEDS: ATORVASTATIN 20 MG TAB PO SCH (21:48)
[2017-12-03] MEDS: QUEtiapine FUMARATE 25 MG TAB PO SCH (21:48)
[2017-12-04] MEDS: LEVOTHYROXINE SODIUM 25 MCG TAB PO SCH (05:12)
[2017-12-04 05:44] VITALS: BP 117/59; PULSE 63; RESP 14; TEMP 97.9; O2SAT 96
[2017-12-04] MEDS: amLODIPine BESYLATE 5 MG TAB PO SCH (08:48)
[2017-12-04] MEDS: FLUoxetine HCL 20 MG CAP PO SCH (08:48)
[2017-12-04] MEDS: BUDESONIDE-FORMOTEROL 160/4.5 MCG INHALER INH SCH ×2 (08:49→21:00)
[2017-12-04] MEDS: REMOVE OLD PATCH T-DERMAL SCH (09:00)
--- NOTE | 2017-12-04 11:00 | HHI.PYPN ---
Subjective Chief Complaint: Depression Remarks Patient seen and examined with counselor and nurse. Chart reviewed. Case discussed with nursing staff. On my examination today, the patient has just got off the phone with her brittany and notes that this relationship is 1 of her stressors. She is consequently somewhat more dysphoric at the time of my evaluation. Sleep is fair. She did experience some suicidal ideation yesterday but none today. Denies side effects from medications except that she found that she was a little bit groggy from the Seroquel the next morning. No physical complaints. Agreeable to further titration and adjustment of timing of dosing of Seroquel. Review of Systems Except as stated in HPI: all other systems reviewed are Neg Mental Status Examination Appearance: Appropriate Consciousness: Alert Orientation: x4 Motor Activity: Other (No abnormal motor movements noted) Speech: Unremarkable Language: Adequate Fund of Knowledge: Adequate Attention and Concentration: Adequate Memory: Unremarkable (Grossly intact on clinical exam) Mood: Other (Remains a little dysphoric) Affect: Blunt Thought Process & Associations: Intact, Logical, Linear Thought Content: Appropriate Hallucination Type: None Delusion Type: None Suicidal Ideation: No Suicidal Plan: No Suicidal Intention: No Homicidal Ideation: No Homicidal Plan: No Homicidal Intention: No Insight: Fair Judgment: Impulsive Results Labs Labs reviewed. No new labs. Vitals/IOs Vital Signs Date Time Temp Pulse Resp B/P (MAP) Pulse Ox O2 Delivery O2 Flow Rate FiO2 12/04/17 05:44 97.9 63 14 117/59 (78) 96 11/30/17 21:13 Room Air Assessment & Plan Problem List: (1) Adjustment disorder with depressed mood ICD Codes: F43.21 - Adjustment disorder with depressed mood Assessment & Plan Titrate Seroquel to 100 mg to target ongoing mood symptoms. I will adjust the dosing of this medication so that it is earlier in the evening to lessen morning grogginess. Continue other psychotropics as ordered. Continue to monitor on the inpatient unit. Continue other care as ordered. I did suggest a family session with brittany and counselor to hash through some of the issues that she has in the relationship, but patient declines saying that brittany would never agree to such a session. Justification for Cont. Inpt. Med changes. Risk for decompensation in less restrictive environment. Discharge Planning Possible discharge in the next 1-2 days. Request HC Surrog/Guard Advoc?: No Chaiffetz,Manuel B. MD Dec 04, 2017 11:00
[2017-12-04] MEDS: hydrOXYzine HCL 25 MG TAB PO PRN (11:20)
[2017-12-04 18:00] VITALS: BP 122/64; PULSE 71; RESP 17; TEMP 97.8; O2SAT 97
[2017-12-04] MEDS: MONTELUKAST SODIUM 10 MG TAB PO SCH (21:00)
[2017-12-04] MEDS: QUEtiapine FUMARATE 100 MG TAB PO SCH (21:00)
[2017-12-04] MEDS: ATORVASTATIN 20 MG TAB PO SCH (21:00)
[2017-12-05] MEDS: LEVOTHYROXINE SODIUM 25 MCG TAB PO SCH (05:20)
[2017-12-05 05:38] VITALS: BP 95/54; PULSE 70; RESP 17; TEMP 97.9; O2SAT 99
[2017-12-05] MEDS: FLUoxetine HCL 20 MG CAP PO SCH (08:15)
[2017-12-05] MEDS: BUDESONIDE-FORMOTEROL 160/4.5 MCG INHALER INH SCH ×2 (08:51→20:52)
[2017-12-05] MEDS: amLODIPine BESYLATE 5 MG TAB PO SCH (08:53)
[2017-12-05] MEDS: REMOVE OLD PATCH T-DERMAL SCH (08:54)
--- NOTE | 2017-12-05 09:51 | HHI.PYPN ---
Subjective Chief Complaint: Depression Remarks Patient seen and examined with nurse. Chart reviewed. Case discussed with nursing staff. No behavioral issues noted overnight. Case discussed in treatment team with therapists note that the patient is participating somewhat more in groups and is more interactive. On my examination today, the patient describes her mood as "fay." Affect is a little brighter today. She denies SI. She continues to complain of some mild grogginess from the Seroquel, although this seems more tolerable today, and patient is loath to reduce the dose as she appreciates the salutary effect this agent has on her sleep. No other medication side effects. No physical complaints. Review of Systems Except as stated in HPI: all other systems reviewed are Neg Mental Status Examination Appearance: Appropriate Consciousness: Alert Orientation: x4 Motor Activity: Other (No motoric abnormalities noted) Speech: Unremarkable Language: Adequate Fund of Knowledge: Adequate Attention and Concentration: Adequate Memory: Unremarkable (Grossly intact on clinical exam) Mood: Other (Mood is improving) Affect: Blunt (More reactive today) Thought Process & Associations: Intact, Logical, Linear Thought Content: Appropriate Hallucination Type: None Delusion Type: None Suicidal Ideation: No Suicidal Plan: No Suicidal Intention: No Homicidal Ideation: No Homicidal Plan: No Homicidal Intention: No Mental Status Exam Remarks Insight and judgment are fair Results Labs Labs reviewed Vitals/IOs Vital Signs Date Time Temp Pulse Resp B/P (MAP) Pulse Ox O2 Delivery O2 Flow Rate FiO2 12/05/17 05:38 97.9 70 17 95/54 (68) 99 Intake and Output 12/05/17 12/05/17 12/06/17 08:00 16:00 00:00 Intake Total 480 ml Balance 480 ml Assessment & Plan Problem List: (1) Adjustment disorder with depressed mood ICD Codes: F43.21 - Adjustment disorder with depressed mood Assessment & Plan Continue Prozac and Seroquel as ordered. I would like to make sure she acclimates to current dose of Seroquel. Continue to monitor on the inpatient unit. Continue other medications and care as ordered. Justification for Cont. Inpt. Risk for decompensation in less restrictive environment. Discharge Planning Possible discharge in the next 1-2 days. Request HC Surrog/Guard Advoc?: No Manuel Sears MD December 05, 2017 09:51
--- NOTE | 2017-12-05 09:59 | PD.TTN ---
Patient Problems 1. Discharge planning 2. Medication compliance 3. Knowledge deficit 4. Lack of coping skills Progress Toward Goals Provider Present: Dr. Adan Sears Provider Input: 12/05/17 - Dr. Sears reported that he increased the patient's Seroquel yesterday and requested that this counselor obtain collateral information from patient's family regarding pateint's discharge plan. 12/01/17 - This is a new patient and Dr. Sears will evaluate her today. Psychiatric Counselors Present: BALJINDER Martínez Psych Therapist Input: 12/05/17 - Patient remains agitated with her and is compliant with medication and treatment. 12/01/17 - New patient and counselor will assess her mental status today. Group Spec/RT/OT/BARRON Present: BEATRICE Loco Group Spec/RT/OT/BARRON Input: 12/05/17 - Patient attends groups, is appropriate, and cooperative. 12/01/17 - New patient Discharge Plan [facility] 12/01/17 - Patient is currently receiveing psychiatric medications for her PCP. Counselor will arrange for a psychiatric follow-up appointment with [facility] prior to patient's discharge. Documentation Scribe: BALJINDER Martínez Date Resolved: December 05, 2017 Haley Choi December 05, 2017 09:59
[2017-12-05] MEDS: hydrOXYzine HCL 25 MG TAB PO PRN (17:40)
[2017-12-05 18:25] VITALS: BP 137/63; PULSE 73; RESP 17; TEMP 98; O2SAT 99
[2017-12-05] MEDS: ATORVASTATIN 20 MG TAB PO SCH (20:52)
[2017-12-05] MEDS: QUEtiapine FUMARATE 100 MG TAB PO SCH (20:52)
[2017-12-05] MEDS: MONTELUKAST SODIUM 10 MG TAB PO SCH (20:52)
[2017-12-06] MEDS: LEVOTHYROXINE SODIUM 25 MCG TAB PO SCH (06:02)
[2017-12-06 06:19] VITALS: BP 106/51; PULSE 73; RESP 16; TEMP 97.9; O2SAT 99
[2017-12-06] MEDS: amLODIPine BESYLATE 5 MG TAB PO SCH ×2 (09:00→09:36)
[2017-12-06] MEDS: BUDESONIDE-FORMOTEROL 160/4.5 MCG INHALER INH SCH (09:00)
[2017-12-06] MEDS: REMOVE OLD PATCH T-DERMAL SCH (09:00)
[2017-12-06] MEDS: FLUoxetine HCL 20 MG CAP PO SCH (09:36)
[2017-12-06] MEDS: hydrOXYzine HCL 25 MG TAB PO PRN (09:37)
[2017-12-06] MEDS ORDERED: LEVO25TA4 PO (10:13)
[2017-12-06] MEDS ORDERED: FLUO20CA12 PO (10:13)
[2017-12-06] MEDS ORDERED: QUET1TAB8 PO (10:13)
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
== END 2017-12-06 14:00 | disposition home or self-care (01) | DRG 881 ==
LOC: NEPD 07:55 → NEDA 20:28 → H260 21:19
PROVIDERS: ADMIT Psychiatry & Neurology Psychiatry; ATTEND Psychiatry & Neurology Psychiatry
DX: F43.21 Adjustment disorder with depressed mood (principal); R45.851 Suicidal ideations; I10 Essential (primary) hypertension; E78.00 Pure hypercholesterolemia, unspecified; M10.9 Gout, unspecified; E07.9 Disorder of thyroid, unspecified; F31.9 Bipolar disorder, unspecified; F43.10 Post-traumatic stress disorder, unspecified; F41.9 Anxiety disorder, unspecified; M19.90 Unspecified osteoarthritis, unspecified site; F12.90 Cannabis use, unspecified, uncomplicated; Z72.0 Tobacco use; Z23 Encounter for immunization; Z91.5 Personal history of self-harm
CPT/HCPCS: 80048; 80053; 80061; 80307; 81001; 83036; 84443; 84703; 85025; 99285